=== PATIENT | female | born 1940 | race Caucasian/White ===

== ENCOUNTER 2016-07-18 13:22 | Emergency (ER) | payer MEDICARE, BC ==
[2016-07-18 13:36] VITALS: BP 138/70
--- NOTE | 2016-07-18 14:44 | RAD ---
INDICATION: Left ankle injury. TECHNIQUE: 3 views of the left ankle were obtained. FINDINGS: There is mild diffuse soft tissue swelling. There is a small avulsion fracture fragment arising from the dorsal talus measuring 4 x 2 mm in size. There also appears to be a fracture fragment arising from the anterior distal tibia measuring 6 x 4 mm in size possibly chronic. Joint spaces appear maintained. IMPRESSION: 1. SMALL AVULSION FRACTURE FRAGMENT ARISING FROM THE DORSAL TALUS. 2. SMALL FRACTURE FRAGMENT ARISING FROM THE ANTERIOR DISTAL TIBIA POSSIBLY CHRONIC.
--- NOTE | 2016-07-18 14:45 | RAD ---
INDICATION: Trauma right hip pain. TECHNIQUE: An AP view of the pelvis was obtained. FINDINGS: The bones are in normal alignment. No fracture is seen. Joint spaces appear maintained. IMPRESSION: NO EVIDENCE FOR FRACTURE, IF THE PATIENT'S SYMPTOMS PERSIST RECOMMEND FOLLOW-UP IMAGING.
--- NOTE | 2016-07-18 14:46 | RAD ---
INDICATION: Fall. Right leg pain COMPARISON: None TECHNIQUE: AP and lateral views were obtained. FINDINGS: The bony structures, joint spaces, and soft tissues are normal for age. IMPRESSION: NO ACUTE FRACTURE.
--- NOTE | 2016-07-18 14:49 | ED ---
Lower Extremity - HPI Summary HPI Summary: 75F presents with fall today. She states her right leg slipped out from other her and extended and she landed on her right femur and she twisted her left ankle. She was able to bear weight on the ankle states it only hurts if she inverts it. She denies any hip pain only when she tried to ambulate but now it has resolved and the only pain she has is in her right femur. She denies any knee pain and she has full ROM of her hip and knee. She took aspirin for her pain and her pain is minimal now. She denies any numbness or tingling. - History of Current Complaint Chief Complaint: EDExtremityLower Stated Complaint: LEG PAIN Time Seen by Provider: 07/18/16 13:42 Pain Intensity: 0 - Allergies/Home Medications Allergies/Adverse Reactions: Allergies Allergy/AdvReac Type Severity Reaction Status Date / Time No Known Allergies Allergy Verified 07/18/16 13:36 PMH/Surg Hx/FS Hx/Imm Hx Endocrine/Hematology History: Denies: Hx Anticoagulant Therapy Cardiovascular History: Reports: Hx Hypertension Infectious Disease History: No Infectious Disease History: Denies: Traveled Outside the [place] in Last 30 Days - Family History Known Family History: Positive: Hypertension - Social History Alcohol Use: None Substance Use Type: Reports: None Smoking Status (MU): Never Smoked Tobacco Review of Systems Negative: Fever Negative: Chest Pain Negative: Shortness Of Breath Positive: Myalgia - right femur, left ankle All Other Systems Reviewed And Are Negative: Yes Physical Exam Triage Information Reviewed: Yes Vital Signs On Initial Exam: Initial Vitals Temp Pulse Resp BP Pulse Ox 98 F 68 18 138/70 98 07/18/16 13:34 07/18/16 13:34 07/18/16 13:34 07/18/16 13:34 07/18/16 13:34 Vital Signs Reviewed: Yes Appearance: Positive: Well-Appearing Skin: Positive: Warm, Dry Head/Face: Positive: Normal Head/Face Inspection Eyes: Positive: Normal, Conjunctiva Clear Respiratory/Lung Sounds: Positive: Clear to Auscultation, Breath Sounds Present Cardiovascular: Positive: Normal, RRR Musculoskeletal: Positive: Strength/ROM Intact - hip right, knee right, Limited @ - left ankle due to pain, Other - nontender over malleolus ankle, good pulse, capillary refill <2 secs, tender over posterior aspect of upper leg with some edema noted Diagnostics - Vital Signs Vital Signs Temp Pulse Resp BP Pulse Ox 07/18/16 13:53 98 F 68 18 138/70 98 07/18/16 13:34 98 F 68 18 138/70 98 - Laboratory Lab Statement: Any lab studies that have been ordered have been reviewed, and results considered in the medical decision making process. - Radiology hip Xray Interpretation: No Acute Changes Radiology Interpretation Completed By: Radiologist - IMPRESSION: NO EVIDENCE FOR FRACTURE, IF THE PATIENT'S SYMPTOMS PERSIST RECOMMEND FOLLOW-UP IMAGING. leg Xray Interpretation: No Acute Changes Radiology Interpretation Completed By: Radiologist ankle Xray Interpretation: Positive (See Comments) - IMPRESSION: 1. SMALL AVULSION FRACTURE FRAGMENT ARISING FROM THE DORSAL TALUS. 2. SMALL FRACTURE FRAGMENT ARISING FROM THE ANTERIOR DISTAL TIBIA POSSIBLY CHRONIC. Radiology Interpretation Completed By: Radiologist Lower Extremity Course/Dx - Course Course Of Treatment: 75F presents with right upper leg pain and left ankle pain s/p fall today. denies any head injury. is not on blood thinners. took two aspirin for pain. able to ambulate afterwards with pain in ankle with inverision. on exam full ROM of hip. xray femur, hip normal. ankle shows avulsion of talus will treat as sprain. told to follow up with primary. patient understands and agrees with plan - Diagnoses Differential Diagnosis/HQI/PQRI: Positive: Fracture (Closed), Sprain, Strain Provider Diagnoses: Right leg pain, Left ankle sprain Discharge - Discharge Plan Condition: Good Disposition: HOME Patient Education Materials: Leg Sprain (ED) Referrals: Jesus Craig MD [Primary Care Provider] - Additional Instructions: Take Tylenol or ibuprofen every 6 hours as needed for pain Apply ice, rest, elevate Use cane to ambulate Follow up with primary care physician within 7 days Return to ED if develop numbness, tingling, inability to move joint, or any new or worsening symptoms
== END 2016-07-18 15:28 | disposition home or self-care (01) ==
LOC: ED 13:22
DX: M79.604 Pain in right leg (principal); S93.402A Sprain of unspecified ligament of left ankle, initial encounter; S92.102A Unspecified fracture of left talus, initial encounter for closed fracture; W01.0XXA Fall on same level from slipping, tripping and stumbling without subsequent striking against object, initial encounter; Y92.9 Unspecified place or not applicable; I10 Essential (primary) hypertension
CPT/HCPCS: 72170; 99282

== ENCOUNTER 2017-11-01 13:21 | Emergency (ER) | payer MEDICARE, BC ==
[2017-11-01 13:46] VITALS: BP 175/92
--- NOTE | 2017-11-01 13:58 | UC ---
Dizzy HPI HPI Summary: 77 yo female presents with dizziness. She tells me that last night she was sitting in a chair and sudden had an episode of dizziness with distorted vision that lasted around a minute or two. This was not accompanied by any SOB, chest pain, or headache. This morning around 1030 her symptoms returned and lasted for about 5-10 minutes accompanied by nausea. They resolved spontaneously, only to reoccur a few minutes later for another 5-10minutes with accompanied nausea. This time she felt off balance and sick to her stomach - she went to the bathroom and vomited. Jasper a little better after that. She called her who brought her to . Pt mentions that she has a long standing hx of HTN that is difficult to control and DM2 controlled with Metformin. She does not check her sugars. Denies fever, chills, SOB, chest pain, abdominal pain, dysuria, back pain, neck pain, headache, or weakness. - History Of Current Complaint Chief Complaint: UCDizziness Stated Complaint: DIZZY Time Seen by Provider: 11/01/17 13:28 Hx Obtained From: Patient Onset/Duration: Sudden Onset Severity Currently: None Pain Intensity: 0 - Allergies/Home Medications Allergies/Adverse Reactions: Allergies Allergy/AdvReac Type Severity Reaction Status Date / Time No Known Allergies Allergy Verified 07/18/16 13:36 Home Medications: Home Medications Levothyroxine TAB* [Synthroid TAB*] 88 mcg PO 0800 11/01/17 [History Confirmed 11/01/17] Losartan TAB* [Cozaar TAB*] 1 tab PO DAILY 11/01/17 [History Confirmed 11/01/17] Metoprolol Tartrate [Lopressor] 50 mg PO DAILY 11/01/17 [History Confirmed 11/01] PMH/Surg Hx/FS Hx/Imm Hx Endocrine History: Diabetes Cardiovascular History: Hypertension Other History Of: Negative For: Anticoagulant Therapy - Surgical History Surgical History: Yes Surgery Procedure, Year, and Place: tooth implants, cataract surgery, hysterectomy - Family History Known Family History: Positive: Hypertension - Social History Occupation: Retired Lives: With Family Alcohol Use: Rare Substance Use Type: None Smoking Status (MU): Never Smoked Tobacco Review of Systems Constitutional: Negative Skin: Negative Eyes: Negative ENT: Negative Respiratory: Negative Cardiovascular: Negative Gastrointestinal: Vomiting, Nausea Genitourinary: Negative Neurovascular: Negative Musculoskeletal: Negative Neurological: Numbness - Dizziness Psychological: Negative All Other Systems Reviewed And Are Negative: Yes Physical Exam - Summary Physical Exam Summary: GENERAL: NAD. WDWN. No pain distress. SKIN: No rashes, sores, ulcers, or open wounds. HEENT: Head: AT/NC Eyes: PERRLA. EOM intact. Conjunctiva clear without inflammation or discharge. Ears: Hearing grossly normal. TMs intact, no bulging, erythema, or edema. Nose: Nasal mucosa pink and moist. NTTP maxillary and frontal sinus. Throat: Posterior oropharynx without exudates, erythema, or tonsillar enlargement. Uvula midline. NECK: Supple. Nontender. No lymphadenopathy. CHEST: CTAB. No r/r/w. No accessory muscle use. Breathing comfortably and in no distress. CV: RRR. Without m/r/g. Pulses intact. Brisk cap refill. No JVD or carotid bruit appreciated. ABDOMEN: Soft. NTTP. No distention or guarding. No CVA tenderness. Bowel sounds present MSK: FROM in B/L UEs and LEs with symmetric strength. NEURO: A&Ox3. 3 word recall, remote, recent memory, ability to follow 2-step directions, and attention intact. CN: II: Peripheral michael intact. Vision normal. III, IV, : EOMI. MILD HORIZONTAL NYSTAGMUS. PERRLA. V: Sensations intact and symmetric. Opens mouth and clenches teeth. VII: No facial asymmetry. Forehead wrinkles. Grins, shuts eyes, frowns, puffs cheeks. VIII: Hearing intact to finger rub. IX, X: Swallows and coughs. Uvula midline. XI: Shrugs shoulders. Turns head against resistance. XII: No tongue deviation [id number] are intact. Gait with normal base. Romberg: maintains balance, no pronator drift. Normal speech. No facial drooping. PSYCH: Age appropriate behavior. Triage Information Reviewed: Yes Vital Signs: Initial Vital Signs Temp 98.7 F 11/01/17 13:30 Pulse 64 11/01/17 13:30 Resp 18 11/01/17 13:30 BP 175/92 11/01/17 13:30 Pulse Ox 100 11/01/17 13:30 Laboratory Tests 11/01/17 11/01/17 13:57 14:09 POC Glucose (mg/dL) 114 H POC Urine Color Yellow POC Urine Clarity Clear POC Urine pH 7.5 POC Ur Specif [place] 1.010 POC Urine Protein Negative POC Ur Glucose (UA) Negative POC Urine Ketones Negative POC Urine Blood Negative POC Urine Nitrite Negative POC Urine Bilirubin Negative POC Urine Urobilinogen 0.2 POC U Leukocyte Esteras Negative Vital Signs Reviewed: Yes Dizzy Course/Dx - Course Course Of Treatment: UA negative. POC glucose 114. EKG sinus bradycardia 57bpm no ST changes as read by Dr. Galloway. Her symptoms are concerning for TIAs vs CVA /Ischemia vs cardiac pathology. I have advised her to be further evaluated in the ED for a more appropriate workup. Pt declined ambulance and will drive her. - Differential Dx/Diagnosis Provider Diagnoses: Dizziness. Nausea. vomiting. HTN Discharge - Sign-Out/Discharge Documenting (check all that apply): Patient Departure All imaging exams completed and their final reports reviewed: No Studies - Discharge Plan Condition: Stable Disposition: HOME Referrals: Jesus Craig MD [Primary Care Provider] - Additional Instructions: Please go to the ER for further evaluation of your dizziness and vomiting In the Urgent care we did an EKG UA negative POC glucose 114 - Billing Disposition and Condition Condition: STABLE Disposition: Home
== END 2017-11-01 14:20 | disposition home or self-care (01) ==
LOC: UCEAST 13:21
DX: R42 Dizziness and giddiness (principal); R11.2 Nausea with vomiting, unspecified; I10 Essential (primary) hypertension; R00.1 Bradycardia, unspecified; E11.9 Type 2 diabetes mellitus without complications; Z79.84 Long term (current) use of oral hypoglycemic drugs; Z79.899 Other long term (current) drug therapy
CPT/HCPCS: 81003; 93005; 99202; G0463

== ENCOUNTER 2017-11-01 14:51 | Emergency (ER) | payer MEDICARE, BC ==
[2017-11-01 16:00] LABS: ABS Basophils 0.1 10^3/ul (0-0.2); ABS Eosinophils 0.1 10^3/ul (0-0.6); ABS Lymphocytes 1.7 10^3/ul (1.0-4.8); ABS Monocytes 0.4 10^3/ul (0-0.8); ABS Nucleated RBC 0 10^3/ul; Hematocrit 46 % (35-47); Hemoglobin 15.6 g/dl (12.0-16.0); Lymphocyte % 23.7 % (25-47); Mean Corpuscular HGB Conc 34 g/dl (31-36); Mean Corpuscular Hemoglobin 28 pg (27-31); Mean Corpuscular Volume 83 fL (80-97); Mean Platelet Volume 8.3 um3 (7.4-10.4); Nucleated Red Blood Cells % 0.1; Platelet Count 224 10^3/ul (150-450); Red Blood Count 5.49 10^6/ul (4.00-5.40); Red Cell Distribution Width 14 % (10.5-15); White Blood Count 7.3 10^3/ul (3.5-10.8)
[2017-11-01 16:38] LABS: EGFR Non-African American 64.9 (>60)
[2017-11-01] MEDS ORDERED: hydrALAZINE IV* 20 MG/ML VIAL IV SLOW PU ONE ×2 (16:43→18:06)
--- NOTE | 2017-11-01 16:49 | ED ---
Syncope/Near Syncope - HPI Summary HPI Summary: Patient complains of 3 episodes of lightheadedness lasting 3-4 minutes each starting last night. Episodes occur at rest. One episode of N/V. States she had 3 bowel movements today which is unusual. BP is elevated here in the ED at SBP 240, the patient states baseline BP 150/80. Denies YEBOAH, fever, CP, SOB, vision change, focal deficits, speech change, EMS, facial droop, abdominal pain , change in urine, vaginal symptoms, cough, sore throat. Medical history is DM , hypothyroid, A. fib, HTN, breast cancer 9 years ago. Possible TIA one to 2 years ago. Patient states she has taken all her usual meds. No anti-coag for A. fib. Takes daily ASA. Nonsmoker, denies EtOH or illegal drug use. Father had IN at age 83. No other fam cardiac hx. - History Of Current Complaint Chief Complaint: EDDizziness Time Seen by Provider: 11/01/17 16:20 Hx Obtained From: Patient Onset/Duration: Sudden Onset Timing: Minutes Context: Unwitnessed Activity At Onset: At Rest Associated Head Trauma: No Aggravating Factor(s): Nothing Alleviating Factor(s): Rest Associated Signs And Symptoms: Lightheadedness, Vomiting - Risk Factors Cardiac Risk Factors: Hypertension, Diabetes Risk Factor(s): ASA - Allergies/Home Medications Allergies/Adverse Reactions: Allergies Allergy/AdvReac Type Severity Reaction Status Date / Time No Known Allergies Allergy Verified 07/18/16 13:36 Home Medications: Home Medications Losartan TAB* [Cozaar TAB*] 25 mg PO DAILY 11/01/17 [History Confirmed 11/01/17] Metoprolol Tartrate TAB* [Lopressor TAB*] 50 mg PO DAILY 11/01/17 [History Confirmed 11/01/17] cloNIDine TAB* [Catapres 0.1 MG TAB*] 0.2 mg PO DAILY 11/01/17 [History Confirmed 11/01/17] metFORMIN* [Glucophage 500 MG TAB *] 500 mg PO BID 11/01/17 [History Confirmed 11/01/17] PMH/Surg Hx/FS Hx/Imm Hx Endocrine/Hematology History: Reports: Hx Diabetes Denies: Hx Anticoagulant Therapy Cardiovascular History: Reports: Hx Atrial Fibrillation, Hx Hypertension Denies: Hx Cardiac Arrest History: Reports: Hx Dialysis - Cancer History Cancer Type, Location and Year: breast ca - Surgical History Surgery Procedure, Year, and Place: tooth implants, cataract surgery, hysterectomy Infectious Disease History: No Infectious Disease History: Denies: Traveled Outside the [place] in Last 30 Days - Family History Known Family History: Positive: Hypertension - Social History Alcohol Use: Rare Substance Use Type: Reports: None Smoking Status (MU): Never Smoked Tobacco Review of Systems Constitutional: Negative Eyes: Negative ENT: Negative Cardiovascular: Negative Respiratory: Negative Positive: Vomiting, Nausea Genitourinary: Negative Skin: Negative Neurological: Other Psychological: Normal All Other Systems Reviewed And Are Negative: Yes Physical Exam - Summary Physical Exam Summary: Patient alert and oriented. No active symptoms. No return of symptoms with head movement. Neuro exam normal. Triage Information Reviewed: Yes Vital Signs On Initial Exam: Initial Vitals Temp Pulse Resp BP Pulse Ox 97.4 F 65 16 191/87 100 11/01/17 15:04 11/01/17 15:04 11/01/17 15:04 11/01/17 15:04 11/01/17 15:04 Vital Signs Reviewed: Yes Appearance: Positive: Well-Appearing Skin: Positive: Warm Head/Face: Positive: Normal Head/Face Inspection Eyes: Positive: Normal Neck: Positive: Supple Respiratory/Lung Sounds: Positive: Clear to Auscultation Cardiovascular: Positive: Normal Abdomen Description: Positive: Nontender Musculoskeletal: Positive: Normal Neurological: Positive: Normal Psychiatric: Positive: Normal AVPU Assessment: Alert - [place] Coma Scale Best Eye Response: 4 - Spontaneous Best Motor Response: 6 - Obeys Commands Best Verbal Response: 5 - Oriented Coma Scale Total: 15 Diagnostics - Vital Signs Vital Signs Temp Pulse Resp BP Pulse Ox 11/01/17 15:04 97.4 F 65 16 191/87 100 - Laboratory Lab Results: Lab Results 11/01/17 11/01/17 11/01/17 Range/Units 15:45 15:45 15:45 WBC 7.3 (3.5-10.8) 10^3/ul RBC 5.49 H (4.00-5.40) 10^6/ul Hgb 15.6 (12.0-16.0) g/dl Hct 46 (35-47) % MCV 83 (80-97) fL MCH 28 (27-31) pg MCHC 34 (31-36) g/dl RDW 14 (10.5-15) % Plt Count 224 (150-450) 10^3/ul MPV 8.3 (7.4-10.4) um3 Neut % (Auto) 68.5 (38-83) % Lymph % (Auto) 23.7 L (25-47) % [place] % (Auto) 5.8 (0-7) % Eos % (Auto) 1.0 (0-6) % Baso % (Auto) 1.0 (0-2) % Absolute Neuts (auto) 5.0 (1.5-7.7) 10^3/ul Absolute Lymphs (auto) 1.7 (1.0-4.8) 10^3/ul Absolute Monos (auto) 0.4 (0-0.8) 10^3/ul Absolute Eos (auto) 0.1 (0-0.6) 10^3/ul Absolute Basos (auto) 0.1 (0-0.2) 10^3/ul Absolute Nucleated RBC 0 10^3/ul Nucleated RBC % 0.1 Sodium 139 (135-145) mmol/L Potassium 4.0 (3.5-5.0) mmol/L Chloride 104 (101-111) mmol/L Carbon Dioxide 28 (22-32) mmol/L Anion Gap 7 (2-11) mmol/L BUN Pending Creatinine 0.85 (0.51-0.95) mg/dL Est GFR ( Amer) 78.5 (>60) Est GFR (Non-Af Amer) 64.9 (>60) BUN/Creatinine Ratio Pending Glucose 116 H (70-100) mg/dL Lactic Acid 1.4 (0.5-2.0) mmol/L Calcium 9.5 (8.6-10.3) mg/dL Magnesium 2.2 (1.9-2.7) mg/dL Total Bilirubin 0.50 (0.2-1.0) mg/dL AST 17 (13-39) U/L ALT 15 (7-52) U/L Alkaline Phosphatase 57 (34-104) U/L Troponin I Pending Total Protein 7.7 (6.4-8.9) g/dL Albumin 4.1 (3.2-5.2) g/dL Globulin 3.6 (2-4) g/dL Albumin/Globulin Ratio 1.1 (1-3) Result Diagrams: 11/01/17 15:45 11/01/17 15:45 Lab Statement: Any lab studies that have been ordered have been reviewed, and results considered in the medical decision making process. - Radiology cxr Xray Interpretation: No Acute Changes Radiology Interpretation Completed By: Radiologist - EKG 1 Cardiac Rate: Bradycardia EKG Rhythm: Sinus Bradycardia ST Segment: Normal Ectopy: None Course/Dx Course Of Treatment: Patient complains of 3 episodes of lightheadedness lasting 3-4 minutes each starting last night. Episodes occur at rest. One episode of N /V. States she had 3 bowel movements today which is unusual. BP is elevated here in the ED at SBP 240, the patient states baseline BP 150/80. Denies YEBOAH, fever, CP, SOB, vision change, focal deficits, speech change, EMS, facial droop , abdominal pain, change in urine, vaginal symptoms, cough, sore throat. Medical history is DM, hypothyroid, A. fib, HTN, breast cancer 9 years ago. Possible TIA one to 2 years ago. Patient states she has taken all her usual meds. No anti-coag for A. fib. Takes daily ASA. Nonsmoker, denies EtOH or illegal drug use. Father had IN at age 83. No other fam cardiac hx. Physical exam:Patient alert and oriented. No active symptoms. No return of symptoms with head movement. Neuro exam normal. Discussed patient with Dr. Alicia who recommended discharge home. Elevated BP, vital signs otherwise normal. UA negative. Chest x-ray negative. EKG normal. Blood pressure under control with hydralazine 20mg IV. Patient feels fine. Agrees to follow up with primary care and cardiology. - Diagnoses Provider Diagnoses: Hypertensive urgency, Lightheadedness Discharge - Sign-Out/Discharge Documenting (check all that apply): Patient Departure - Discharge Plan Condition: Stable Disposition: HOME Patient Education Materials: Hypertension (ED), Lightheadedness (ED) Referrals: Jesus Craig MD [Primary Care Provider] - Additional Instructions: Please follow-up with primary care and cardiology for further evaluation. Return to the ED for any new or worsening symptoms - Billing Disposition and Condition Condition: STABLE Disposition: Home
--- NOTE | 2017-11-01 17:25 | RAD ---
Indication: Syncope. Single frontal view of the chest performed at 1653 hours was reviewed. No prior study is available for comparison. No mediastinal shift is noted. Heart is of normal size and configuration. Lung michael appear clear. IMPRESSION: NO ACTIVE CARDIOPULMONARY DISEASE IS NOTED.
[2017-11-01 20:16] LABS: Urine Appearance Clear; Urine Blood Negative (Negative); Urine Color Yellow; Urine Ketones Trace (Negative); Urine Protein Negative (Negative); Urine Specific Gravity 1.011 (1.010-1.030); Urine Urobilinogen Negative (Negative)
[2017-11-01 21:32] VITALS: BP 189/83
== END 2017-11-01 21:30 | disposition home or self-care (01) ==
LOC: ED 14:51
DX: R42 Dizziness and giddiness (principal); I10 Essential (primary) hypertension; E11.9 Type 2 diabetes mellitus without complications; R00.1 Bradycardia, unspecified; E03.9 Hypothyroidism, unspecified; I48.91 Unspecified atrial fibrillation; Z82.49 Family history of ischemic heart disease and other diseases of the circulatory system; Z85.3 Personal history of malignant neoplasm of breast; Z79.82 Long term (current) use of aspirin; Z79.84 Long term (current) use of oral hypoglycemic drugs; Z79.899 Other long term (current) drug therapy; R11.2 Nausea with vomiting, unspecified
CPT/HCPCS: 36415; 71045; 80053; 81003; 83605; 83735; 83880; 84439; 84443; 84481; 84484; 85025; 93005; 96374; 96376; 99283; J0360

== ENCOUNTER 2018-06-02 10:12 | Emergency (ER) | payer MEDICARE, BC ==
[2018-06-02 10:46] VITALS: BP 134/78
== END 2018-06-02 12:09 | disposition left against medical advice (07) ==
LOC: UCEAST 10:12
DX: R05 Cough (principal); Z53.21 Procedure and treatment not carried out due to patient leaving prior to being seen by health care provider